=== PATIENT | female | born 1990 | race Caucasian/White ===

== ENCOUNTER 2019-09-13 04:24 | Emergency (ER) | payer SELFPAY ==
[~2019-09-13] VITALS: Ht 180.3 cm; Wt 210.0 kg
[2019-09-13 05:22] VITALS: BP 134/70
[2019-09-13] MEDS ORDERED: CHLO15MO2 PO (05:38)
[2019-09-13] MEDS ORDERED: PRED20TA PO (05:38)
[2019-09-13] MEDS ORDERED: AMOX1TAB61 PO (05:38)
--- NOTE | 2019-09-13 05:38 | PHYS DOC ---
Past Medical History Past Medical History: No Pertinent History Past Surgical History: No Surgical History Smoking Status: Current Every Day Smoker Alcohol Use: None Drug Use: None General Adult EDM: Chief Complaint: Toothache HPI: HPI: Patient is a 29 year old female presents with report of right upper molar discomfort and pain with known dental carry. Patient reports has been bothering her for the past few days. Patient also reports pruritic rash to extremities and now has noticed some facial rash as well. Denies known exposure. Denies new medication, detergent, soaps, shampoos, or known exposure. Denies fever or chills. Patient reports she is unsure if she might be . Patient reports last menstrual period was 08/22/2019. Review of Systems: Review of Systems: Constitutional: Denies fever or chills Eyes: Denies redness or eye pain HENT: Denies nasal congestion or sore throat; reports tooth ache and gum swelling Respiratory: Denies cough or shortness of breath Cardiovascular: Denies chest pain or palpitations GI: Denies abdominal pain, nausea, or vomiting : Denies dysuria or hematuria Musculoskeletal: Denies back pain or joint pain Integument: Reports pruritic rash to extremities and face Neurologic: Denies headache, focal weakness or sensory changes Complete systems were reviewed and found to be within normal limits, except as documented in this note. Current Medications: Current Medications Medications (Trade) Dose Ordered Sig/Mariza Start Time Stop Time Status Last Admin Dose Admin Amoxicillin/ Clavulanate Potassium (Augmentin 875/ 125mg) 1 tab 1X ONCE 09/13/19 05:45 09/13/19 05:46 UNV Dexamethasone (Decadron) 10 mg 1X ONCE 09/13/19 05:45 09/13/19 05:46 UNV Allergies: Allergies: Allergies Coded Allergies Type Severity Reaction Last Updated Verified No Known Drug Allergies 09/13/19 No Physical Exam: PE: Constitutional: Well developed, well nourished, no acute distress, non-toxic appearance HENT: Normocephalic, atraumatic, oropharynx moist, poor dentition throughout, prior extractions noted, right mandibular 1st molar with severe dental torres and tenderness on palpation, no fluctuance appreciated Eyes: Conjunctiva normal, no discharge Neck: Normal range of motion, no tenderness, supple Lungs & Thorax: No respiratory distress, equal chest rise and fall, no stridor Skin: Warm, dry, no erythema, small macular raised rash that is scattered to lower extremity, petechiae from scratching noted to left anterior thigh, minimal rash noted to face Extremities: No tenderness, ROM intact, no edema Neurologic: Alert and oriented X 3, no focal deficits noted Psychologic: Affect normal, judgment normal EKG: EKG: [] Radiology/Procedures: Radiology/Procedures: [] Course & Med Decision Making: Course & Med Decision Making Patient presents with dentalgia with known dental caries. No drainable abscess appreciated. Patient also reports pruritic rash with no known exposure. Symp tomatic treatment provided with oral steroid. Infectious process treated with Augmentin. Patient reports she is unclear if she might be . Urine negative. Prescription also written for Peridex dental rinse. Patient stable for discharge with outpatient follow-up with PCP and dentist. Dental resource packet provided. Discussed findings and plan with patient, who acknowledges understanding and agreement. Dragon Disclaimer: Dragon Disclaimer: This electronic medical record was generated, in whole or in part, using a voice recognition dictation system. Departure Departure Impression: Primary Impression: Dentalgia Additional Impressions: Pruritic rash Dental caries Disposition: HOME, SELF-CARE Condition: STABLE Referrals: NO PCP (PCP) Patient Instructions: Dental Caries, Rash, [id number], Toothache-Brief Additional Instructions: Use over the counter Tylenol and/or Ibuprofen for pain. Please follow up with a dentist. May also use over the counter Benadryl as needed for continued itching. Scripts Chlorhexidine Gluconate (PERIDEX) 15 Ml Mouthwash 15 ML PO BID for 10 Days, #473 ML 0 Refills Prov: MARILEE LIRIANO DO 09/13/19 Amoxicillin/Potassium Clav (AUGMENTIN 875-125 TABLET) 1 Each Tablet 1 TAB PO BID, #14 TAB Prov: MARILEE LIRIANO DO 09/13/19 Prednisone (PREDNISONE) 20 Mg Tablet 2 TAB PO DAILY, #8 TAB Take this prescription tomorrow, Sunday09/14/19 Prov: MARILEE LIRIANO DO 09/13/19 Justicifation of Admission Dx: Justifications for Admission: Justification of Admission Dx: N/A MARILEE LIRIANO DO Sep 13, 2019 05:38
[2019-09-13] MEDS ORDERED: AMOXICILLIN/K CLAV 875/125MG TABLET. PO ONE (06:00)
[2019-09-13] MEDS ORDERED: DEXAMETHASONE 4 MG TABLET PO ONE (06:00)
== END 2019-09-13 06:26 | disposition home or self-care (01) ==
LOC: ER 04:24
DX: K02.9 Dental caries, unspecified (principal); K08.89 Other specified disorders of teeth and supporting structures; L29.9 Pruritus, unspecified; F17.200 Nicotine dependence, unspecified, uncomplicated; Z79.899 Other long term (current) drug therapy
CPT/HCPCS: 81025; 99283; J8540